=== PATIENT | male | born 1955 | race Caucasian/White ===

== ENCOUNTER → 2019-11-25 | Outpatient (CLI) | payer OTHER ==
--- NOTE | 2019-11-25 14:33 | Diagnostic Imaging Report ---
PROCEDURE: CT chest without contrast. TECHNIQUE: Multiple contiguous axial images were obtained through the chest without the use of intravenous contrast. Auto Exposure Controls were utilized during the CT exam to meet ALARA standards for radiation dose reduction. INDICATION: Pulmonary nodule noted on chest x-ray at another facility. CORRELATION: None FINDINGS: Visualized thyroid gland appearing unremarkable. There are scattered small, predominantly subcentimeter lymph nodes present. This includes the axilla and retropectoral lymph node region, through the mediastinum. Definitive pathologic lymphadenopathy not demonstrated. Heart size within normal limits. Ascending aorta is mildly prominent 4 cm. Moderate calcification of the aortic arch. A few small micronodules are present, likely calcification. A few are noncalcified. No concerning pulmonary mass. No infiltrate and/or effusion. The visualized portions of the upper abdomen are unremarkable. There are findings consistent with likely gynecomastia. The visualized osseous structures demonstrate no acute findings. IMPRESSION: 1. Negative for acute abnormality of the chest. There are a few small micronodules including calcified granulomas present. A definitive concerning mass is not suggested. However, if there is an outside study that shows or suggest a potential pulmonary mass, comparison correlation would be recommended. Dictated by: Dictated on workstation # [id number]
== END ==
LOC: RAD 13:30
PROVIDERS: ATTEND Emergency Medicine
DX: J84.10 Pulmonary fibrosis, unspecified (principal); R91.8 Other nonspecific abnormal finding of lung field
CPT/HCPCS: 71250

== ENCOUNTER 2023-03-21 05:46 | Outpatient (CLI) | payer OTHER ==
[~2023-03-21] VITALS: Ht 180.3 cm; Wt 111.6 kg
[2023-03-21] MEDS ORDERED: TMSL.4C PO (13:09)
[2023-03-21] MEDS ORDERED: LOSA50TA63 PO (13:09)
[2023-03-21] MEDS ORDERED: FISH1CAP15 PO (13:09)
[2023-03-21] MEDS ORDERED: UBID50CA21 PO (13:09)
[2023-03-21] MEDS ORDERED: TRIA1CAP84 PO (13:09)
[2023-03-21] MEDS ORDERED: AMLO2.5T4 PO (13:09)
[2023-03-21] MEDS ORDERED: ROSU10TA28 PO (13:09)
== END 2023-03-21 13:58 | disposition home or self-care (01) ==
LOC: PREOP 05:46
PROVIDERS: ATTEND Surgery
DX: Z01.818 Encounter for other preprocedural examination (principal)

== ENCOUNTER 2023-04-02 07:24 | Day surgery (SDC) | payer OTHER ==
[~2023-04-02] VITALS: Ht 180.3 cm; Wt 111.6 kg
[~2023-04-02 07:24] MED LIST: AMLO2.5T4 PO; FISH1CAP15 PO; LOSA50TA63 PO; ROSU10TA28 PO; TMSL.4C PO; TRIA1CAP84 PO; UBID50CA21 PO
[2023-04-02] MEDS ORDERED: LACTATED RINGERS 1,000 ML 1,000 ML IV STA (07:27)
[2023-04-02 07:58] VITALS: BP 173/97
[2023-04-02] MEDS ORDERED: proPOfol INJECTION 200 MG/20 ML VIAL IV ONE (09:02)
[2023-04-02 09:27] VITALS: BP 86/54
--- NOTE | 2023-04-02 09:28 | Endoscopy Discharge Instruct ---
Endo Procedure/Findings Findings 1.: Polyp 2.: Diverticulosis 3.: Internal Hemorrhoids Discharge Instructions - Activity: You might feel a little sleepy until tomorrow. This is due to the medicine you received to relax you. Until tomorrow, you should: NOT drive a car, operate machinery or power tools. NOT drink any alcoholic beverages. NOT make any important decisions or sign importortant papers. Do not return to work until tomorrow, unless otherwise instructed. Resume previous activities tomorrow. Diet: Start by taking liquids. If you tolerate liquids, advance to solid food. 1.: Colonscopy in 3 years Notify Physician - If you experience excessive bleeding, unusual abdominal pain, fever, or chest pain, contact your doctor immediately. Follow-Up: Other Follow up in my office in one week JUDIT WILEY DO Apr 02, 2023 09:28
--- NOTE | 2023-04-02 09:28 | Progress Note-Post Operative ---
Post-Operative Progess Note Surgeon (s)/[employer] (s) Surgeon JUDIT WILEY DO [employer]: Maya Downing, MSIII Pre-Operative Diagnosis +Cologuard Post-Operative Diagnosis Polyps Diverticula int hemorrhoids Procedure & Operative Findings Date of Procedure 04/02/23 Procedure Performed/Findings Colonoscopy with snare polypectomy PROCEDURE NOTE: After informed consent was obtained, the patient was brought to the endoscopy suite, placed in bed in left lateral decubitus position. He was administered IV sedation by the PLATE MOLDER who then monitored his vitals the entire time, heart rate, blood pressure and pulse ox and the scope was inserted, on the way in noted diverticula and took a picture. I pushed all the way to about 160 cm and pushed into the cecum, took a picture of appendiceal orifice and noted the ileocecal valve. Then slowly withdrew the scope insufflating to look circumferentially at the florez starting in the cecum and then just outside the cecum I found a large polyp and removed it with a hot snare. Contiued up the ascending colon and found another large polyp; also removed with hot snare. Next, to the hepatic flexure, then down the transverse colon; where I found another polyp removed with the snare. Withdrew to the splenic flexure and into the descending colon where I found two more small polyps that I also removed with the snare. Down in the sigmoid and then into the rectal vault and retroflexed the scope. Took a picture of the internal hemorrhoids. The patient tolerated the procedure. He was recovered in endoscopy suite. Recommended for repeat colonoscopy in 3 years. Anesthesia Type IV sedation by PLATE MOLDER Estimated Blood Loss Estimated blood loss (mL): scant Specimens/Packing Specimens Removed transverse colon polyp Asc colon polyp cecal polyp desc colon polyp x 2 JUDIT WILEY DO Apr 02, 2023 09:27
[2023-04-02 09:30] VITALS: BP 106/60
[2023-04-02 10:10] VITALS: BP 106/60
--- NOTE | 2023-04-02 15:53 | Anesthesia-General Post-Op ---
MAC Patient Condition Mental Status/LOC: Same as Preop Cardiovascular: Satisfactory Nausea/Vomiting: Absent Respiratory: Satisfactory Pain: Controlled Complications: Absent Post Op Complications Complications None Follow Up Care/Instructions Patient Instructions None needed. Anesthesiology Discharge Order Discharge Order Patient is doing well, no complaints, stable vital signs, no apparent adverse anesthesia problems. No complications reported per nursing. VENESSA NAGEL CRNA Apr 02, 2023 15:52
== END 2023-04-02 10:10 | disposition home or self-care (01) ==
LOC: ENDO 07:24
PROVIDERS: ATTEND Surgery
DX: Z12.11 Encounter for screening for malignant neoplasm of colon (principal); D12.3 Benign neoplasm of transverse colon; D12.2 Benign neoplasm of ascending colon; D12.0 Benign neoplasm of cecum; D12.4 Benign neoplasm of descending colon; K57.30 Diverticulosis of large intestine without perforation or abscess without bleeding; K64.8 Other hemorrhoids; Z87.891 Personal history of nicotine dependence